=== PATIENT | male | born 1975 | race African-American/Black ===

== ENCOUNTER 2024-04-22 20:01 | Emergency (ER) | payer OTHER ==
--- NOTE | 2024-04-22 20:15 | NUR ---
CALLED TO TRIAGE, NO ANSWER
--- NOTE | 2024-04-22 20:25 | NUR ---
called, no answer
--- NOTE | 2024-04-22 20:44 | NUR ---
CALLED IN LOBBY AND OUTSIDE, NO ANSWER. PT LWBS
--- NOTE | 2024-04-22 20:44 | NUR ---
PATIENT LEFT WITHOUT BEING SEEN BY DR. SANCHEZ. NO FURTHER CARE PROVIDED FOR PATIENT.
== END 2024-04-22 20:44 | disposition left against medical advice (07) ==
LOC: MED 20:01
DX: R53.1 Weakness (principal); Z53.21 Procedure and treatment not carried out due to patient leaving prior to being seen by health care provider